=== PATIENT | male | born 1980 | race Hispanic/Latino ===

== ENCOUNTER 2019-03-04 23:33 | Emergency (ER) | payer OTHER, SELFPAY ==
[2019-03-04 23:34] VITALS: BP 114/69; PULSE 73; RESP 16; TEMP 36.3; O2SAT 99; BMI 26.4
--- NOTE | 2019-03-05 00:05 | ED.VIS.GEN ---
History of Present Illness Chief Complaint: Allergic Reaction Detail of Chief Complaint: trouble swallowing Informant: Patient Onset: Hours - 3 Context: Gradual Onset - after eating [employer] pizza, containing pepperoni, banana peppers, and ham -- all ingredients he has had before. Timing: Continuous Quality: like swollen in throat Location: throat Current Severity: Moderate Maximum Severity: Moderate Worsened by: nothing Relieved by: nothing. tried no medications. Associated Symptoms: none. Narrative: After eating pizza he noticed some difficulty swallowing. He denies any shortness of breath, chest discomfort, sore throat, extremity swelling, rash, or pruritus. He has some seasonal allergies, states he went to ENT 5 days ago for those symptoms and was prescribed Nasacort and Ceftin ear antibiotic. He is not sure why he was put on an antibiotic. He has had no other significant symptoms today, and took his antibiotic this morning, over 12 hours ago. He has never had a systemic allergic reaction but is concerned that may be what he is having. The trouble swallowing has been present and stable for the past 3 hours. He has had the toppings on this pizza before. - Past Medical History (1) Seasonal allergies Status: Chronic Past Medical History - Allergies and Home Meds Allergies/Adverse Reactions: Allergies No Known Allergies Allergy (Verified 03/04/19 23:34) Primary Care Physician: Abhay Goldstein MD [STAFF PHYSICIAN] - 1-2 Days if not improving Yusuf Damian MD [Primary Care Provider] - Lives: With Family Smoking Status: Never smoker Review of Systems General: Denies: Chills, Fever, Sweats Eyes: Denies: Visual changes - bilaterally, Diplopia ENT: Reports: Rhinorrhea - And congestion. Denies: Sore throat Cardiovascular: Denies: Chest pain, Palpitations Respiratory: Denies: Dyspnea, Cough, Dyspnea on exertion Gastrointestinal: Denies: Abdominal pain, Nausea, Vomiting, Diarrhea, Melena, Hematochezia Musculoskeletal: Denies: Neck pain, Back pain, Swelling, Extremity Pain Skin: Denies: Rash, Abrasions, Wounds Neurological: Denies: Headache, Weakness, Parasthesia Physical Exam Vital Signs/Narrative: Vital Signs Temp Pulse Resp BP Pulse Ox 03/04/19 23:34 97.3 F L 73 16 114/69 99 Inital Vital Signs reviewed: Yes General: Well nourished, Well developed, No Acute Distress - Well-appearing Head: Normocephalic, Atraumatic Eyes: Perrl, EOMI ENT: Moist mucous membranes, No rhinorrhea, - - Posterior oropharynx normal. No asymmetry. No trismus. No stridor. No hoarseness or hot potato voice. Neck: Supple, Nontender, No lymphadenopathy, No JVD Cardiovascular: Regular rate, Regular rhythm, No murmurs Respiratory: No distress, CTA bilaterally, Chest nontender Extremities: Nontender, No edema. Negative for: Calf Tenderness Skin: Normal color, No rash, No Trauma Neurological: Alert, Oriented x3, Cranial nerves II-XII grossly intact, Normal Strength, Normal Sensation, Normal Gait Psychological: Normal affect, Normal Mood Diagnostic/Tx/Re-eval - Medical Decision Making Etiology of symptoms is not clear, certainly allergic reaction is possible but I certainly do not think he is having an anaphylactic reaction. Given a dose of Decadron is a just in case. Certainly a reaction to the Cefdinir is possible but this is also unlikely. Advised that if he gets worsening symptoms after his next dose to discontinue it and return to the ER for any concerning symptoms or trouble breathing. He is comfortable with that plan. ED Disposition - Plan for ED Patient: Disposition: Home or Assisted Living Diagnosis: Dysphagia Instructions: Understanding Dysphagia, ALLERGIC REACTION, Other (General) Referrals: Yusuf Damian MD [Primary Care Provider] - Abhay Goldstein MD [STAFF PHYSICIAN] - 1-2 Days if not improving
[2019-03-05] MEDS: dexAMETHasone 4 MG Tablet 8 MG PO (00:16)
== END 2019-03-05 00:19 | disposition home or self-care (01) ==
LOC: ED 03-05 00:08
PROVIDERS: Emergency Provider Emergency Medicine; Family Provider Family Medicine; PCP Family Medicine
DX: R13.10 Dysphagia, unspecified (principal)
CPT/HCPCS: 99283